=== PATIENT | female | born 1980 | race Caucasian/White ===

== ENCOUNTER 2023-11-03 18:53 | Emergency (ER) | payer MEDICAID ==
[~2023-11-03] VITALS: Ht 165.1 cm; Wt 108.9 kg
[2023-11-03 19:00] VITALS: BP_SYST 122; PULSE 98; RESP 16; TEMP 98.3; O2SAT 100
[2023-11-03] MEDS: DIPHENHYDRAMINE HCL 25 MG CAPSULE PO ONE (19:28)
[2023-11-03] MEDS ORDERED: DIPHENHYDRAMINE HCL 25 MG CAPSULE ONE (19:28)
[2023-11-03] MEDS ORDERED: PRED20TA PO (20:03)
[2023-11-03] MEDS ORDERED: DIPH25CA83 PO (20:03)
[2023-11-03 20:25] VITALS: BP_SYST 122; PULSE 98; RESP 16; TEMP 98.3; O2SAT 100
== END 2023-11-03 20:25 | disposition home or self-care (01) ==
LOC: SED 18:53
DX: R21 Rash and other nonspecific skin eruption (principal); T78.1XXA Other adverse food reactions, not elsewhere classified, initial encounter; R03.0 Elevated blood-pressure reading, without diagnosis of hypertension; R06.02 Shortness of breath; R13.19 Other dysphagia; Z98.890 Other specified postprocedural states; Z91.018 Allergy to other foods; X58.XXXA Exposure to other specified factors, initial encounter
CPT/HCPCS: 99283; Q0163

== ENCOUNTER 2023-11-15 11:15 | Emergency (ER) | payer MEDICAID ==
[~2023-11-15] VITALS: Ht 165.1 cm; Wt 90.7 kg
[2023-11-15 11:15] VITALS: BP_SYST 120; PULSE 102; RESP 18; TEMP 97.8; O2SAT 97
[~2023-11-15 11:15] MED LIST: DIPH25CA83 PO; PRED20TA PO
[2023-11-15 13:07] LABS: BASOPHILS % (AUTO) 0.6 % (0.0-2.0); EOSINOPHILS # (AUTO) 0.1 K/uL (0.0-0.4); EOSINOPHILS % (AUTO) 3.9 % (0.0-4.0); HEMATOCRIT 32.4 % (36-48); HEMOGLOBIN 9.9 g/dL (12.0-16.0); LYMPHOCYTES # (AUTO) 1.4 K/uL (1.0-5.5); LYMPHOCYTES % (AUTO) 37.8 % (20.5-51.5); MEAN CORPUSCULAR HEMOGLOBIN 23 pg (27-31); MEAN CORPUSCULAR HGB CONC 31 % (32-36); MEAN CORPUSCULAR VOLUME 75 fL (79.0-98.0); MONOCYTES # (AUTO) 0.3 K/uL (0.0-1.0); MONOCYTES % (AUTO) 7.5 % (1.7-9.3); NEUTROPHILS # (AUTO) 1.8 K/uL (1.8-7.7); NEUTROPHILS % (AUTO) 50.2 % (40.0-70.0); PLATELET COUNT (AUTO) 294 K/uL (130-430); RED BLOOD CELL COUNT(AUTO) 4.35 MIL/uL (4.2-6.2); WHITE BLOOD COUNT (AUTO) 3.6 K/uL (4.8-10.8)
[2023-11-15 13:28] LABS: CALCIUM 8.4 mg/dL (8.4-11.0); CREATININE 0.63 mg/dL (0.55-1.30); POTASSIUM 3.6 mmol/L (3.5-5.1)
[2023-11-15] MEDS ORDERED: CLOT15CR5 TP (13:54)
[2023-11-15] MEDS ORDERED: PRED20TA PO (13:54)
[2023-11-15 13:57] LABS: INR 0.9 (0.8-1.2); PROTHROMBIN TIME 9.5 SECS (9.5-12.5)
[2023-11-15 14:10] VITALS: BP_SYST 126; PULSE 82; RESP 17; TEMP 97.8; O2SAT 98
== END 2023-11-15 14:10 | disposition home or self-care (01) ==
LOC: SED 11:15
DX: B35.4 Tinea corporis (principal); R03.0 Elevated blood-pressure reading, without diagnosis of hypertension; Z91.013 Allergy to seafood; Z79.899 Other long term (current) drug therapy
CPT/HCPCS: 36415; 80048; 83605; 85025; 85610; 85730; 99283